=== PATIENT | female | born 1995 | race American Indian/Alaskan Native ===

== ENCOUNTER 2016-02-29 11:55 | Emergency (ER) | payer OTHER ==
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
[2016-02-29] MEDS ORDERED: NORCO 5/325 PO ONE (20:34)
[2016-02-29] MEDS ORDERED: MOTRIN PO ONE ×2 (20:58→21:00)
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
[2016-02-29 22:52] VITALS: BP 134/76
== END 2016-02-29 22:52 | disposition home or self-care (01) ==
LOC: ED 11:55
DX: M25.522 Pain in left elbow (principal); M79.641 Pain in right hand; J45.909 Unspecified asthma, uncomplicated; Z91.02 Food additives allergy status; Y04.8XXA Assault by other bodily force, initial encounter; Y93.89 Activity, other specified; Y99.9 Unspecified external cause status; Y92.89 Other specified places as the place of occurrence of the external cause
CPT/HCPCS: 81025